=== PATIENT | male | born 1985 | race American Indian/Alaskan Native ===

== ENCOUNTER 2025-09-21 12:33 | Emergency (ER) | payer SELFPAY ==
[~2025-09-21] VITALS: Ht 177.8 cm; Wt 96.0 kg
[2025-09-21 12:35] VITALS: TEMP 98.1; O2SAT 99
[2025-09-21 13:26] VITALS: BP 118/72; PULSE 116; RESP 20; O2SAT 98
[2025-09-21 13:49] LABS: BASOPHILS % 0.3 % (0.0-2.0); EOSINOPHILS % 0.2 % (0.0-5.0); HEMATOCRIT. 41.7 % (42.0-52.0); HEMOGLOBIN. 13.9 g/dL (14.0-18.0); LYMPHOCYTES % 14.2 % (20.0-50.0); MEAN PLATELET VOLUME 7.1 fl (7.4-10.4); MONOCYTES % 7.5 % (2.0-8.0); NEUTROPHILS % 77.8 % (40.0-76.0); PLATELET 287 x1000/uL (130-400); RED BLOOD CELL COUNT 4.62 mill/uL (4.7-6.1); RED CELL DISTRIBUTION WIDTH 13.8 % (11.6-14.6)
[2025-09-21 14:12] LABS: CREATININE 1.1 mg/dL (0.6-1.3); UREA NITROGEN BLOOD 6 mg/dL (9-23)
[2025-09-21 14:13] LABS: PROTEIN TOTAL 7.0 g/dL (6.0-8.3)
[2025-09-21 14:14] LABS: ASPARTATE AMINOTRANSFERASE 34 IU/L (<34); BILIRUBIN DIRECT 0.2 mg/dL (<=3.0)
[2025-09-21 14:15] LABS: BILIRUBIN TOTAL 0.7 mg/dL (0.1-1.0)
== END 2025-09-21 15:21 | disposition home or self-care (01) ==
LOC: ER 12:33
DX: F14.10 Cocaine abuse, uncomplicated (principal); Z79.899 Other long term (current) drug therapy
CPT/HCPCS: 36415; 80048; 80076; 82550; 83735; 85025; 93005; 99284